=== PATIENT | female | born 1990 | race Caucasian/White ===

== ENCOUNTER 2018-02-10 12:47 | Emergency (ER) | payer MEDICAID, OTHER ==
--- NOTE | 2018-02-10 13:43 | OBPN ---
Datetime: 02/10/2018 13:30 Membranes, Provider: Intact FHR - Baseline A Provider: 130 Presentation-Admit: Vertex IP Progress Note Comment: 28yo g1 edc 02/23 by 12wk us presents w/ c/o ctxs since 2am. denies srom, v ag bleeding, decreased fm or recent coitus. rtes severity of pain 01/02states ob hx uncomplicated. pmh_ pshx: denies nkda medic:pnv; folic acid shx: denies etoh, illicit drugs or tobacco use i: 37.3wks latent phase labor p: labor precautions kick counts d/c home Vital Signs Provider: Reviewed; Within Normal Limits NICHD Accel Fetus A IP Provider: 15X15 FHR Category Provider Fetus A: Category I NICHD Variability Prov Fetus A: Moderate 6-25bpm Dilatation, Provider: 0 Effacement, Provider: 30 Station, Provider: -2 NICHD Decel Fetus A IP Provider: None
[2018-02-10 17:42] VITALS: BP 113/77; PULSE 87; RESP 17; TEMP 97.2; O2SAT 98
== END 2018-02-10 13:37 | disposition home or self-care (01) ==
LOC: C.EROB 12:47
DX: O47.1 False labor at or after 37 completed weeks of gestation (principal); Z3A.37 37 weeks gestation of pregnancy

== ENCOUNTER 2018-02-11 20:59 | Inpatient (IN) | payer OTHER ==
[2018-02-11] MEDS ORDERED: Lactated Ringer's 1,000 ML IV SCH (22:15)
--- NOTE | 2018-02-11 22:24 | OBHP ---
Datetime: 02/11/2018 22:15 IP Adm Impression: Term, intrauterine IP Admit Plan: Admit to unit Admit Comment, IP Provider: 28 @ 37 08/02 PRESENTS WITH COMPLAINTS OF CONTRACTINS. PT MADE CERVIC AL CHANGE FROM ADMISSION ON TO 2-. WILL ADMIT FOR PAIN CONTROL AND EARLY LABOR. LAB: NEEDS RUBELLA TO GIVEN POBHX: G0, NO COMPLICATOINS PGYNX: NONE PMHX: NONE MEDS: NONE ALL: NONE A/P 28 @ 37 2 PRESENTS FOR EARLY LABOR 1) EARLY LABOR. 2) PAIN CONTROL WITH EPIDURAL Pelvic Type - PN: Adequate Extremities - PN: Normal Abdomen - PN: Normal Back - PN: Normal Breast - PN: Normal Lungs - PN: Normal Heart - PN: Normal Thyroid - PN: Normal Neurologic - PN: Normal HEENT - PN: Normal General - PN: Normal FHR - Baseline A Provider: 140s Membranes, Provider: Intact Contraction Comments Provider: Q3 minutes Comments, ACOG Physical Exam: sve: Gestation - Est Wks by US: 37.0 Pool Provider: Negative Nitrazine Provider: Positive IP Hx Assessment: The History has been Reviewed and is Current EGA AdmitDate IP: 37.4 Vital Signs Provider: Reviewed IP Chief Complaint: Uterine contractions NICHD Variability Prov Fetus A: Moderate 6-25bpm NICHD Accel Fetus A IP Provider: 15X15 NICHD Decel Fetus A IP Provider: None Dilatation, Provider: 2 Effacement, Provider: 90 Station, Provider: 0 Genitourinary Exam: Normal DTRs - PN: Normal Dr Signature: Lina DOTSON Datetime: 02/10/2018 13:30 Presentation-Admit: Vertex FHR Category Provider Fetus A: Category I
[2018-02-11 22:52] LABS: BASO % 0.1 % (0.0-2.0); EOS % 0.1 % (0.0-4.0); HEMOGLOBIN 8.8 g/dL (11.0-16.0); LYMPH # 1.4 K/uL (1.0-4.3); LYMPH % 10.6 % (20.0-40.0); MEAN CELL VOLUME 68.8 fL (81.0-99.0); MEAN CORPUSCULAR HEMOGLOBIN 21.8 pg (27.0-31.0); MEAN CORPUSCULAR HGB CONC 31.7 g/dL (33.0-37.0); MEAN PLATELET VOLUME 9.3 fL (7.2-11.7); MONO # 0.9 K/uL (0.0-0.8); MONO % 6.5 % (0.0-10.0); NEUT # 10.8 K/uL (1.8-7.0); NEUT % 82.7 % (50.0-75.0); NRBC % 0.1 % (0.0-2.0); RBC 4.06 Mil/uL (3.80-5.20); RED CELL DISTRIBUTION WIDTH 15.5 % (11.5-14.5); WHITE BLOOD COUNT 13.1 K/uL (4.8-10.8)
[2018-02-11 23:30] LABS: ALB/GLOB RATIO 0.9 (1.0-2.1); ALBUMIN 3.4 g/dL (3.5-5.0); ALT/SGPT 18 U/L (9-52); AST/SGOT 19 U/L (14-36); BLOOD UREA NITROGEN 5 mg/dL (7-17); GFR AFRICAN-AMERICAN > 60; GFR NON-AFRICAN AMERICAN > 60
[2018-02-11 23:39] LABS: SQUAMOUS EPITHIAL 1 /hpf (0-5); URINE BACTERIA RARE (<OCC); URINE BILIRUBIN NEGATIVE (NEGATIVE); URINE BLOOD NEGATIVE (NEGATIVE); URINE CLARITY Clear (Clear); URINE COLOR Yellow (YELLOW); URINE GLUCOSE (UA) NORMAL (Normal); URINE LEUKOCYTE ESTERASE NEG Leu/uL (Negative); URINE PROTEIN NEGATIVE (NEGATIVE); URINE UROBILINOGEN NORMAL mg/dL (0.2-1.0)
[2018-02-12 00:26] LABS: HEPATITIS B SURFACE AG Negative (NEGATIVE)
[2018-02-12] MEDS ORDERED: Bupivacaine HCl/FentaNYL Cit 100 ML EPI ONE (03:31)
[2018-02-12] MEDS ORDERED: Lidocaine 2% MPF (5 ml) Inj ONE ×2 (08:23→08:34)
[2018-02-12] MEDS ORDERED: Benzocaine/Menthol 20%-0.5% Topical Spray (60 ml) TOP PRN (08:54)
--- NOTE | 2018-02-12 09:06 | OBDS ---
DELIVERY PERSONNEL Delivery Doctor: Cali Blas MD Elementary Reading Tutor: Lulu Lozano RN Anesthesiologist: MATERNAL INFORMATION Delivery Anesthesia: Epidural Medications in Delivery: pitocin 20 Estimated Blood Loss (ml): 300 Placenta Cultured: No Maternal Complications: None Provider Comments: dx:37.5wks; labor pp dx: same procedure: ; cord blood collected;plac delivered spont and intact. anesth: 2%local lidocaine ob:orossetos med student: nicole ledesma ebl 300cc no complic neon remained in br with pt LABOR SUMMARY EDC: 02/28/2018 00:00 No. Babies in Womb: 1 Attempted: No Labor Anesthesia: Epidural LABOR INFORMATION Reason for Induction: Not Applicable Onset of Labor: 02/11/2018 12:52 Complete Dilatation: 02/12/2018 07:40 Oxytocin: N/A Group B Beta Strep: Negative (Annotations: 02/06/2018) Antibiotics # of Doses: 0 Antibiotics Time of Last Dose: 0 Steroids Given: None Reason Steroids Not Administered: Not Applicable MEMBRANES Membranes Rupture Method: Spontaneous Rupture of Membranes: 02/12/2018 03:24 Length of Rupture (hrs): 4.62 Amniotic Fluid Color: Clear Amniotic Fluid Amount: Moderate Amniotic Fluid Odor: Normal STAGES OF LABOR Stage 1 hrs: 18 Stage 1 min: 48 Stage 2 hrs: 0 Stage 2 min: 21 Stage 3 hrs: 0 Stage 3 min: 5 Total Time in Labor hrs: 19 Total Time in Labor min: 14 VAGINAL DELIVERY Episiotomy: None Laceration Extension: Second Degree Laceration Type: Perineal; Vaginal Laceration Repair: Yes Laceration Repair Note: repair of 2-0vicryl Initial Vag Sponge Count: 10 Initial Vag Sharps Count: 2 Sponge Count Correct: Yes; Vaginal Sweep Performed Sharps Count Correct: Yes BABY A INFORMATION Delivery Date/Time: 02/12/2018 08:01 Method of Delivery: Vaginal Born in Route : No : N/A Forceps: N/A Vacuum Extraction: N/A Shoulder Dystocia : No SHOULDER DYSTOCIA BABY A Infant Delivery Date/Time: 02/12/2018 08:01 PRESENTATION/POSITION BABY A Presentation: Cephalic Cephalic Presentation: Vertex Vertex Position: Right Occipital Anterior Breech Presentation: N/A PLACENTA INFORMATION BABY A Placenta Delivery Time : 02/12/2018 08:06 Placenta Method of Delivery: Spontaneous Placenta Status: Delivered SCORES BABY A Heart Rate 1 min: >100 bpm Resp Effort 1 min: Good Cry Reflex Irritability 1 min: Cough or Sneeze or Pulls Away Muscle Tone 1 min: Active Motion Color 1 min: Body [place], Extremities Blue Resuscitation Effort 1 min: Tactile Stimulation SCORE 1 MIN: 9 Heart Rate 5 min: >100 bpm Resp Effort 5 min: Good Cry Reflex Irritability 5 min: Cough or Sneeze or Pulls Away Muscle Tone 5 min: Active Motion Color 5 min: Body [place], Extremities Blue SCORE 5 MIN: 9 INFORMATION BABY A Gestational Age at Delivery: 37.5 Gestational Status: Term Infant Outcome : Liveborn Infant Condition : Stable Infant Sex: Male IDENTIFICATION/MEDS BABY A ID Band Number: [id number] ID Band Location: Left Leg; Left Arm Sensor Applied: Yes Sensor Number: [id number] Sensor Location : Cord Clamp Vitamin K Given : Not Given Erythromycin Given: Not Given WEIGHT/LENGTH BABY A Infant Birthweight (gms): 2690 Infant Weight (lb): 5 Weight (oz): 15 Length Inches: 18.50 Infant Length cms: 47.0 CORD INFORMATION BABY A No. Cord Vessels: 3 Nuchal Cord : N/A Cord Blood Taken: Yes Suction: Mouth; Nose ASSESSMENT BABY A Infant Complications: None Physical Findings at Delivery: Molding of the Head Motion Study Technician/ALS Called : No Care By: Ayana KELLEY Transferred To: Nursery
[2018-02-12] MEDS ORDERED: Oxytocin 30 UNIT 30 UNITS/500 ML BAG IV ONE (09:15)
[2018-02-12] MEDS: Oxycodone/Acetaminophen 5/325 mg Tab PO PRN (20:17)
[2018-02-13 08:08] LABS: BASO # 0.1 K/uL (0.0-0.2); BASO % 0.5 % (0.0-2.0); EOS # 0.1 K/uL (0.0-0.7); EOS % 0.6 % (0.0-4.0); HEMOGLOBIN 7.3 g/dL (11.0-16.0); LYMPH % 13.8 % (20.0-40.0); MEAN CELL VOLUME 69.3 fL (81.0-99.0); MEAN CORPUSCULAR HEMOGLOBIN 22.4 pg (27.0-31.0); MEAN CORPUSCULAR HGB CONC 32.3 g/dL (33.0-37.0); MEAN PLATELET VOLUME 9.3 fL (7.2-11.7); MONO # 1.1 K/uL (0.0-0.8); MONO % 7.9 % (0.0-10.0); NEUT # 10.9 K/uL (1.8-7.0); NEUT % 77.2 % (50.0-75.0); RBC 3.28 Mil/uL (3.80-5.20); RED CELL DISTRIBUTION WIDTH 15.7 % (11.5-14.5); WHITE BLOOD COUNT 14.2 K/uL (4.8-10.8)
[2018-02-13] MEDS: Oxycodone/Acetaminophen 5/325 mg Tab PO PRN (10:04)
[2018-02-13 10:49] VITALS: RESP 18
--- NOTE | 2018-02-13 12:49 | OBPPN ---
Datetime: 02/13/2018 10:41 PP Pain Prov: Within normal limits PP Nausea Prov: Denies PP Breasts Prov: Not Done PP Heart Prov: Normal PP Lungs Prov: Normal PP Abdomen/Uterus Prov: Normal PP Lochia Prov: Normal PP Vulva/Perineum Prov: Normal PP CVA Tenderness Prov: Normal PP Extremities Prov: Normal PP Progress Prov: Normal PP Comments Phys Exam Prov: Fundus firm and below Umbilicus PP Impression Prov: Normal progression PP Plan Prov: Continue present management PP Progress Note Prov: PPD #1 S/P Acute Anemia superimposed on chronic anemia/Asymptomatic Painful Perineal Sutures and Hydrocortisone cream order as well as Tucks and will cotinue with Tadeo moplast Concerned re Bowel movements and sutures and advised to increase po water intake as well as fiber in her diet Started on Feosol and Colace TID Advance Care Anticipate Discharge Home in AM IP PP Procedures: None Vital Signs Provider PP: Reviewed; Within Normal Limits
[2018-02-13 16:05] VITALS: O2SAT 100
[2018-02-13] MEDS ORDERED: Hydrocortisone 2.5% Oint (20 gm) TOP SCH (18:00)
[2018-02-14 19:31] VITALS: BP 98/67; PULSE 91; TEMP 99
== END 2018-02-14 15:00 | disposition home or self-care (01) | DRG 373 ==
LOC: C.EROB 20:59 → C.4D 22:13 → C.4M 02-12 10:02
PROVIDERS: ADMIT Obstetrics & Gynecology; ATTEND Obstetrics & Gynecology
PROC: 10E0XZZ Delivery of Products of Conception, External Approach (ICD-10-PCS; principal; 2018-02-12)
PROC: 0KQM0ZZ Repair Perineum Muscle, Open Approach (ICD-10-PCS; 2018-02-12)
DX: O99.02 Anemia complicating childbirth (principal); D64.89 Other specified anemias; O70.1 Second degree perineal laceration during delivery; Z3A.37 37 weeks gestation of pregnancy; Z37.0 Single live birth